=== PATIENT | male | born 1960 | race Caucasian/White ===

== ENCOUNTER 2018-11-09 18:34 | Emergency (ER) | payer OTHER ==
[~2018-11-09] VITALS: Ht 175.3 cm; Wt 103.9 kg
[~2018-11-09 18:34] MED LIST: CYCL10 PO; IBUP200 PO; LOSARTAN POTASS50 MG PO; METHI10; Omeprazole20 M1; RXONDA4ODT MM; THYR60; [UNRECOGNIZED DRUG - REMARK]
[2018-11-09 19:30] LABS: BASOPHILS ABSOLUTE AUTO 0.07 K/mm3 (0.00-0.23); BASOPHILS PERCENT AUTO 1 % (0-2); EOSINOPHILS ABSOLUTE AUTO 0.42 K/mm3 (0.00-0.68); EOSINOPHILS PERCENT AUTO 4 % (0-6); Hematocrit 49.9 % (37.0-53.0); Hemoglobin 17.3 g/dL (13.5-17.5); IMMATURE GRAN ABSOLUTE AUTO 0.03 K/mm3 (0.00-0.10); IMMATURE GRAN PERCENT AUTO 0 % (0-1); LYMPHOCYTES ABSOLUTE AUTO 3.52 K/mm3 (0.84-5.20); LYMPHOCYTES PERCENT AUTO 34 % (21-46); MONOCYTES ABSOLUTE AUTO 0.92 K/mm3 (0.16-1.47); MONOCYTES PERCENT AUTO 9 % (4-13); Mean Corpuscular HGB Conc 34.7 g/dL (31.5-36.5); Mean Corpuscular Volume 92 fL (80-100); NEUTROPHILS ABSOLUTE AUTO 5.32 K/mm3 (1.96-9.15); NEUTROPHILS PERCENT AUTO 52 % (41-73); Platelet Count 295 K/mm3 (150-400); RDW Coefficient Variation 13.4 % (11.7-14.2); RDW Standard Deviation 46.1 fL (35.1-46.3); Red Blood Cell Count 5.41 M/mm3 (4.30-5.90); White Blood Cell Count 10.28 K/mm3 (4.00-11.30)
[2018-11-09 19:53] LABS: Alanine Aminotransfer (ALT/SGP 46 U/L (12-78); Albumin/Globulin Ratio 1.1 (0.8-1.8); Alk Phos 73 U/L (50-136); Anion Gap 8 mmol/L (6-16); Aspartate Aminotrans (AST/SGOT 22 U/L (12-37); Bilirubin, Total 1.3 mg/dL (0.1-1.0); Blood Urea Nitrogen 14 mg/dL (8-24); Bun/Creatinine Ratio 15.3 (12.0-20.0); CO2, Blood 25 mmol/L (21-32); Calcium, Blood 9.1 mg/dL (8.5-10.1); Chloride, Blood 108 mmol/L (98-108); Creatinine, Blood 0.91 mg/dL (0.60-1.20); Globulin, Blood 3.6 g/dL (2.2-4.0); Glomerular Filtration Rate >60 (60-); Glucose, Blood 104 mg/dL (70-99); Potassium, Blood 3.5 mmol/L (3.5-5.5); Sodium, Blood 141 mmol/L (136-145); Total Protein, Blood 7.6 g/dL (6.4-8.2); Troponin I <0.015 ng/mL (0.000-0.040)
[2018-11-09 20:29] LABS: Free Thyroxine 0.97 ng/dL (0.70-1.60)
[2018-11-09 20:31] LABS: Thyroid Stimulating Hormone 5.63 uIU/mL (0.360-4.800); Triiodothyronine, Free 2.73 pg/mL (2.18-3.98)
[2018-11-09] MEDS ORDERED: Lopressor 25 mg25 MG PO (21:24)
== END 2018-11-09 21:41 | disposition home or self-care (01) ==
LOC: ER 18:34
PROVIDERS: Emergency Medicine
DX: I48.91 Unspecified atrial fibrillation (principal); I10 Essential (primary) hypertension; E05.90 Thyrotoxicosis, unspecified without thyrotoxic crisis or storm; Z88.8 Allergy status to other drugs, medicaments and biological substances; Z79.899 Other long term (current) drug therapy; Z87.891 Personal history of nicotine dependence
CPT/HCPCS: 36415; 71046; 80053; 84439; 84443; 84481; 84484; 85025; 93005; 93010; 96374; 99285-25; J7030

== ENCOUNTER 2020-06-19 10:18 | Observation (INO) | payer OTHER ==
[~2020-06-19] VITALS: Ht 175.3 cm; Wt 104.1 kg
[~2020-06-19 10:18] MED LIST changes: -ASPIR 8181 M1 PO; -Hair, Skin & N1 EACH PO; -METO25 PO; -XARELTO15 MG PO
[2020-06-19] MEDS ORDERED: METO25 PO (12:39)
[2020-06-19] MEDS ORDERED: ASPIR 8181 M1 PO (12:48)
--- NOTE | 2020-06-19 18:23 | NUR ---
SHIFT SUMMARY RECEIVED REPORT FROM LIGIA NGUYEN @1654. PT IS AOX4, ON TELE SINUS RHYTHM @ 60S,ON ROOM AIR. NO C/O OF PAIN, N/T, N&V, SOB, CP. PT IS WITH HIS ON BEDSIDE TODAY. PT IS ABLE TO AMBULATE AND INDEPENDENT IN THE ROOM. PT WILL RECEIVE XERALTO FOR HIS EVENING MEDS. PT RECEIVED TYLENOL @1403 TODAY. BED IS IN THE LOWEST POSITION, CALL LIGHTS WITHIN REACH AND WILL CONT MONITOR.
--- NOTE | 2020-06-20 04:17 | NUR ---
SHIFT SUMMARY ASSUMED CARE OF PT AT 1900. PT IS A/OX4, DENIES N/T IN EXTERMITES. HEART SOUNDS REGULAR, TELE SHOWS SINUS @ 66, DNEIS CP. LUNG SOUNDS HAVE FINE CRACKLES AT THE BASES AND DIMINISHED T/O, PT C/O PAIN WHEN TAKING DEEP BREATHS. PT IS INDEPENDENT IN ROOM. PT HAS NOT HAD GOOD SLEEP DUE TO PAIN IN L SHOULDER, MEDICATED PER EMAR FOR PAIN. CALL LIGHT IN REACH, BED IN LOWEST POSITION, WILL CONTINUE TO MOINTOR.
[2020-06-20 05:27] LABS: BASOPHILS ABSOLUTE AUTO 0.05 K/mm3 (0.00-0.23); BASOPHILS PERCENT AUTO 1 % (0-2); EOSINOPHILS PERCENT AUTO 3 % (0-6); Hematocrit 42.9 % (37.0-53.0); Hemoglobin 14.5 g/dL (13.5-17.5); IMMATURE GRAN ABSOLUTE AUTO 0.02 K/mm3 (0.00-0.10); IMMATURE GRAN PERCENT AUTO 0 % (0-1); LYMPHOCYTES ABSOLUTE AUTO 1.45 K/mm3 (0.84-5.20); LYMPHOCYTES PERCENT AUTO 14 % (21-46); MONOCYTES ABSOLUTE AUTO 1.01 K/mm3 (0.16-1.47); MONOCYTES PERCENT AUTO 10 % (4-13); Mean Corpuscular HGB 31.7 pg (26.0-34.0); Mean Corpuscular HGB Conc 33.8 g/dL (31.5-36.5); Mean Corpuscular Volume 94 fL (80-100); Mean Platelet Volume 10.1 fL (9.1-12.4); NEUTROPHILS ABSOLUTE AUTO 7.51 K/mm3 (1.96-9.15); NEUTROPHILS PERCENT AUTO 73 % (41-73); Platelet Count 230 K/mm3 (150-400); RDW Coefficient Variation 13.9 % (11.7-14.2); RDW Standard Deviation 48.3 fL (35.1-46.3); Red Blood Cell Count 4.58 M/mm3 (4.30-5.90); White Blood Cell Count 10.34 K/mm3 (4.00-11.30)
[2020-06-20 05:55] LABS: Alanine Aminotransfer (ALT/SGP 20 U/L (12-78); Albumin, Blood 2.8 g/dL (3.4-5.0); Albumin/Globulin Ratio 0.7 (0.8-1.8); Alk Phos 86 U/L (50-136); Anion Gap 6 mmol/L (6-16); Aspartate Aminotrans (AST/SGOT 8 U/L (12-37); Bilirubin, Total 1.4 mg/dL (0.1-1.0); Blood Urea Nitrogen 13 mg/dL (8-24); Bun/Creatinine Ratio 14.8 (12.0-20.0); CO2, Blood 25 mmol/L (21-32); Calcium, Blood 8.9 mg/dL (8.5-10.1); Chloride, Blood 108 mmol/L (98-108); Creatinine, Blood 0.88 mg/dL (0.60-1.20); Globulin, Blood 4.2 g/dL (2.2-4.0); Glomerular Filtration Rate >60 (60-); Glucose, Blood 114 mg/dL (70-99); Potassium, Blood 3.9 mmol/L (3.5-5.5); Sodium, Blood 139 mmol/L (136-145)
[2020-06-20] MEDS ORDERED: Hair, Skin & N1 EACH PO (08:02)
[2020-06-20] MEDS ORDERED: XARELTO15 MG PO (15:54)
--- NOTE | 2020-06-20 16:08 | NUR ---
PT DCD HOME WITH . ALL INSTRUCTIONS REVIEWED WITH THE PT. MED REC WAS FAXED TO PHARMACY OF CHOICE. IV REMOVED WITH NO ISSUE. ALL PERSONAL BELONGINGS SENT WITH THE PT. PT STABLE UPON DC.
== END 2020-06-20 16:08 | disposition home or self-care (01) ==
LOC: ER 10:18 → MEDS 10:19 → ERHOLD 10:19 → MEDS 10:20 → ER 13:06 → MEDS 13:06 → ERHOLD 13:06 → MEDS 13:06 → ERHOLD 15:30 → MEDS 06-20 16:08
PROVIDERS: ADMIT Family Medicine
DX: I26.99 Other pulmonary embolism without acute cor pulmonale (principal); I48.91 Unspecified atrial fibrillation; K21.9 Gastro-esophageal reflux disease without esophagitis; I10 Essential (primary) hypertension; E05.90 Thyrotoxicosis, unspecified without thyrotoxic crisis or storm; J90 Pleural effusion, not elsewhere classified; J98.11 Atelectasis; Z79.82 Long term (current) use of aspirin; Z79.899 Other long term (current) drug therapy; Z88.8 Allergy status to other drugs, medicaments and biological substances; Z87.891 Personal history of nicotine dependence
CPT/HCPCS: 36415; 71260; 80053; 85025; 93970; 96372; 99285-25; A9270; A9270-GY; G0378; J1650; Q9967

== ENCOUNTER → 2020-06-19 | Outpatient (CLI) | payer OTHER ==
[~2020-06-19] MED LIST changes: +ASPIR 8181 M1 PO; +Hair, Skin & N1 EACH PO; +LOSARTAN POTAS100 M1 PO; -LOSARTAN POTASS50 MG PO; +Lopressor 25 mg25 MG PO; -METHI10; +METO25 PO; +Methimazole5 MG PO; -Omeprazole20 M1; +Omeprazole20 M1 PO; +XARELTO15 MG PO; -[UNRECOGNIZED DRUG - REMARK]
[2020-06-19 09:14] LABS: BASOPHILS ABSOLUTE AUTO 0.05 K/mm3 (0.00-0.23); BASOPHILS PERCENT AUTO 0 % (0-2); EOSINOPHILS ABSOLUTE AUTO 0.11 K/mm3 (0.00-0.68); EOSINOPHILS PERCENT AUTO 1 % (0-6); Hematocrit 42.2 % (37.0-53.0); Hemoglobin 14.6 g/dL (13.5-17.5); IMMATURE GRAN ABSOLUTE AUTO 0.04 K/mm3 (0.00-0.10); IMMATURE GRAN PERCENT AUTO 0 % (0-1); LYMPHOCYTES ABSOLUTE AUTO 1.28 K/mm3 (0.84-5.20); LYMPHOCYTES PERCENT AUTO 10 % (21-46); MONOCYTES ABSOLUTE AUTO 1.41 K/mm3 (0.16-1.47); MONOCYTES PERCENT AUTO 11 % (4-13); Mean Corpuscular HGB Conc 34.6 g/dL (31.5-36.5); Mean Corpuscular Volume 93 fL (80-100); Mean Platelet Volume 10.6 fL (9.1-12.4); NEUTROPHILS ABSOLUTE AUTO 10.07 K/mm3 (1.96-9.15); NEUTROPHILS PERCENT AUTO 78 % (41-73); Platelet Count 246 K/mm3 (150-400); RDW Coefficient Variation 13.9 % (11.7-14.2); RDW Standard Deviation 47.4 fL (35.1-46.3); Red Blood Cell Count 4.56 M/mm3 (4.30-5.90); White Blood Cell Count 12.96 K/mm3 (4.00-11.30)
[2020-06-19 09:26] LABS: Alanine Aminotransfer (ALT/SGP 28 U/L (12-78); Albumin, Blood 3.4 g/dL (3.4-5.0); Albumin/Globulin Ratio 0.9 (0.8-1.8); Alk Phos 84 U/L (40-126); Anion Gap 10 mmol/L (6-16); Aspartate Aminotrans (AST/SGOT 14 U/L (12-37); Blood Urea Nitrogen 13 mg/dL (8-24); Bun/Creatinine Ratio 10.6 (12.0-20.0); CO2, Blood 25 mmol/L (21-32); CPK Creatine Kinase 54 U/L (39-308); Chloride, Blood 102 mmol/L (98-108); Creatinine, Blood 1.23 mg/dL (0.60-1.20); Glomerular Filtration Rate >60 (60-); Glucose, Blood 128 mg/dL (70-99); Potassium, Blood 3.9 mmol/L (3.5-5.5); Sodium, Blood 137 mmol/L (136-145); Total Protein, Blood 7.4 g/dL (6.4-8.2)
[2020-06-19 09:31] LABS: Troponin I <0.017 ng/mL (0.000-0.040)
[2020-06-19 09:59] LABS: Free Thyroxine 1.05 ng/dL (0.70-1.60); Thyroid Stimulating Hormone 2.93 uIU/mL (0.360-4.800)
== END ==
LOC: LAB EV 09:06 → LAB SHORT 09:06
PROVIDERS: General Practice
DX: E05.90 Thyrotoxicosis, unspecified without thyrotoxic crisis or storm (principal); R06.02 Shortness of breath; R07.9 Chest pain, unspecified
CPT/HCPCS: 80053; 82550; 83880; 84439; 84443; 84481; 84484; 85025; 85379